=== PATIENT | female | born 1980 | race Caucasian/White ===

== ENCOUNTER 2017-09-08 20:55 | Emergency (ER) | payer SELFPAY ==
[2017-09-08] MEDS ORDERED: ASPIRIN 81 MG CHEWABLE TABLETS PO ONE (21:08)
[2017-09-08 21:09] VITALS: BP 106/67; PULSE 88; TEMP 98.2; BMI 24.5
--- NOTE | 2017-09-08 21:14 | PDOC ---
Rapid Medical Evaluation Chief Complaint: Chest Pain Time Seen by Provider: 09/08/17 21:06 Medical Evaluation: Allergies Allergy/AdvReac Type Severity Reaction Status Date / Time No Known Allergies Allergy Verified 05/16/16 03:15 c/o chest pain and dizziness x 1 day. chest pain worse with breathing. patient reports heaviness with neck and shoulder pain. denies no recent travel, denies prolonged sitting or OCP use. PE: Patient alert ox3. breath sounds clear s1s2 Plan; cbc cmp d-dimer chest xray EKG aspirin patient to the ER for further management of care. Discharge Disposition - Diagnosis Chest pain at rest - Referrals - Patient Instructions - Post Discharge Activity
[2017-09-08] MEDS ORDERED: ASPIRIN 81 MG CHEWABLE TABLETS ONE (21:36)
[2017-09-08 21:42] LABS: BASO % 0.8 % (0-2.0); EOS % 3.4 % (0-4.5); HEMATOCRIT 41.4 % (32.4-45.2); HEMOGLOBIN 14.2 GM/dL (10.7-15.3); LYMPH % 23.7 % (8-40); MCH 31.4 pg (25.7-33.7); MCHC 34.3 g/dl (32.0-36.0); MEAN CELL VOLUME 91.4 fl (80-96); MEAN PLT VOLUME 9.4 fl (7.5-11.1); NEUT % 65.1 % (42.8-82.8); PLATELET COUNT 194 K/MM3 (134-434); RBC 4.53 M/mm3 (3.60-5.2); RDW 13.4 % (11.6-15.6); WHITE BLOOD COUNT 5.2 K/mm3 (4.0-10.0)
[2017-09-08 22:00] LABS: INR 1.01 (0.82-1.09); PROTHROMBIN TIME (PATIENT) 11.4 SEC (9.7-13.0)
[2017-09-08 22:12] LABS: ANION GAP 6 (8-16); BILIRUBIN,TOTAL 0.4 mg/dL (0.2-1.0); BLOOD UREA NITROGEN 13 mg/dL (7-18); CALCIUM 8.3 mg/dL (8.5-10.1); CHLORIDE 106 mmol/L (98-107); CO2 28 mmol/L (21-32); CREATININE 0.6 mg/dL (0.55-1.02); GLUCOSE,RANDOM 92 mg/dL (74-106); SGPT/ALT 28 U/L (12-78); SODIUM 140 mmol/L (136-145); TOT PROT 7.4 g/dl (6.4-8.2)
[2017-09-08 22:15] LABS: ALK PHOS 175 U/L (45-117)
[2017-09-08 22:16] LABS: MAGNESIUM 2.2 mg/dL (1.8-2.4); POTASSIUM 3.5 mmol/L (3.5-5.1); SGOT/AST 21 U/L (15-37)
[2017-09-08] MEDS ORDERED: ALBUTEROL SO4 2.5/IPRATROPIUM 0.5 INH SOL 3 ML VIAL.NEB. NEB ONE (22:18)
--- NOTE | 2017-09-08 22:24 | PDOC ---
History of Present Illness - General Chief Complaint: Chest Pain Stated Complaint: FLU SYMPTOMS Time Seen by Provider: 09/08/17 21:06 History Source: Patient - History of Present Illness Initial Comments: 09/08/17 22:27 37 year old female chest pain x 1 with dizziness. patient reports heaviness to chest, neck and shoulders, . pain worse with breathing. denies OCP, recent travel prolonged sitting. denies NVD, abdominal pain. occasional smoker no pmhx Past History - Past Medical History Allergies/Adverse Reactions: Allergies Allergy/AdvReac Type Severity Reaction Status Date / Time No Known Allergies Allergy Verified 09/08/17 21:08 Home Medications: Ambulatory Orders Ondansetron [Zofran Odt -] 4 mg SL TID #8 od.tablet 05/16/16 Loratadine [Claritin] 10 mg PO DAILY #30 tablet 09/08/17 COPD: No - Surgical History Appendectomy: Yes Cholecystectomy: Yes - Suicide/Smoking/Psychosocial Hx Smoking History: Current some day smoker Number of Cigarettes Smoked Daily: 3 Information on smoking cessation initiated: Yes 'Breaking Loose' booklet given: 09/08/17 Hx Alcohol Use: No Drug/Substance Use Hx: No Review of Systems - Review of Systems Able to Perform ROS?: Yes Is the patient limited Tuvaluan proficient: No Constitutional: No: Symptoms Reported, See HPI, Chills, Diaphoresis, Fever, Loss of Appetite, Malaise, Night Sweats, Weakness, Weight Stable, Unintentional Wgt. Loss, Unexplained wgt Loss, Other HEENTM: No: Symptoms Reported, See HPI, Eye Pain, Blurred Vision, Tearing, Recent change in vision, Double Vision, Cataracts, Ear Pain, Ocular Prothesis, Ear Discharge, Nose Pain, Nose Congestion, Tinnitus, Nose Bleeding, Hearing Loss , Throat Pain, Throat Swelling, Mouth Pain, Dental Problems, Difficulty Swallowing, Mouth Swelling, Other Respiratory: No: Symptoms reported, See HPI, Cough, Orthopnea, Shortness of Breath, SOB with Exertion, SOB at Rest, Stridor, Wheezing, Productive cough, Hemoptysis, Other Cardiac (ROS): Yes: Chest Pain, Chest Tightness ABD/GI: No: Symptoms Reported, See HPI, Abdominal Distended, Abd. Pain w/ defecation, Blood Streaked Bowels, Constipated, Diarrhea, Difficulty Swallowing , Nausea, Poor Appetite, Poor Fluid Intake, Rectal Bleeding, Vomiting, Indigestion, Abdominal cramping, Tarry Stools, Other : No: Symptoms Reported, See HPI, Burning, Dysuria, Discharge, Frequency, Flank Pain, Hematuria, Incontinence, Pain, Urgency, Testicular Mass, Testicular Swelling, Lesions, Testicular Pain, Other *Physical Exam - Vital Signs Last Vital Signs Temp Pulse Resp BP Pulse Ox 98.2 F 88 18 106/67 99 09/08/17 21:06 09/08/17 21:06 09/08/17 21:06 09/08/17 21:06 09/08/17 21:06 - Physical Exam General Appearance: Yes: Appropriately Dressed Respiratory/Chest: positive: Lungs Clear, Normal Breath Sounds Cardiovascular: positive: Regular Rhythm, Regular Rate Gastrointestinal/Abdominal: positive: Normal Bowel Sounds, Soft Extremity: positive: Normal Capillary Refill, Normal Inspection, Normal Range of Motion Integumentary: positive: Normal Color, Warm Neurologic: positive: Fully Oriented, Alert, Normal Mood/Affect Heart Score/ECG Review - History History: Slightly suspicious - Electrocardiogram EKG: Normal - Age Age: </= 45 - Risk Factors Based on the list above the patient has:: No risk factors known - Troponin Troponin: </= normal limit - Score Heart Score - Total: 0 - ECG Intrepretation Rhythm: Regular Rhythm Comment:: 09/08/17 22:24 NSR ED Treatment Course - LABORATORY CBC & Chemistry Diagram: 09/08/17 21:31 09/08/17 21:31 - ADDITIONAL ORDERS Additional order review: Laboratory Results 09/08/17 09/08/17 09/08/17 22:20 21:31 21:31 PT with INR 11.40 INR 1.01 D-Dimer 256 Sodium 140 Potassium 3.5 Chloride 106 Carbon Dioxide 28 Anion Gap 6 L BUN 13 Creatinine 0.6 Creat Clearance w eGFR > 60 Random Glucose 92 Calcium 8.3 L Magnesium 2.2 Total Bilirubin 0.4 D AST 21 ALT 28 Alkaline Phosphatase 175 H Creatine Kinase 72 Troponin I < 0.02 Total Protein 7.4 Albumin 4.0 Serum , Qual Negative 09/08/17 21:31 RBC 4.53 MCV 91.4 MCHC 34.3 RDW 13.4 MPV 9.4 Neutrophils % 65.1 D Lymphocytes % 23.7 D Monocytes % 7.0 Eosinophils % 3.4 Basophils % 0.8 - RADIOLOGY Radiology Studies Ordered: Category Date Time Status CHEST PA & LAT [RAD] Stat Radiology 09/08/17 21:08 Taken - Medications Given in the ED: ED Medications Discontinued Medications Generic Name Dose Route Start Last Admin Trade Name Mora PRN Reason Stop Dose Admin Albuterol/Ipratropium 1 amp 09/08/17 22:18 09/08/17 23:09 Duoneb - NEB 09/08/17 22:19 1 amp ONCE ONE Administration Aspirin 162 mg 09/08/17 21:08 09/08/17 21:39 Asa - PO 09/08/17 21:09 162 mg ONCE ONE Administration Medical Decision Making - Medical Decision Making 09/08/17 22:32 A: pleuritic chest pain P: cbc cmp cardiac troponin *DC/Admit/Observation/Transfer Diagnosis at time of Disposition: Chest pain at rest - Discharge Dispostion Disposition: HOME - Prescriptions Prescriptions: Loratadine [Claritin] 10 mg PO DAILY #30 tablet - Referrals Referrals: Santiago Godinez MD [Staff Physician] - Call tomorrow - Patient Instructions Printed Discharge Instructions: DI for Atypical Chest Pain Additional Instructions: follow up with your doctor as soon as possible. return to the ER if symptoms worsen. - Post Discharge Activity Forms/Work/School Notes: Back to Work
[2017-09-09] MEDS ORDERED: IBUPROFEN 600 MG TABLET (FP) PO ONE (00:19)
--- NOTE | 2017-09-09 10:22 | EKG ---
Test Reason : Blood Pressure : / mmHG Vent. Rate : 082 BPM Atrial Rate : 082 BPM P-R Int : 136 ms QRS Dur : 082 ms QT Int : 386 ms P-R-T Axes : 072 055 058 degrees QTc Int : 450 ms NORMAL SINUS RHYTHM POSSIBLE LEFT ATRIAL ENLARGEMENT NO PREVIOUS ECGS AVAILABLE Confirmed by IFTIKHAR ROBERTSON MD ([id number]) on 09/09/2017 10:22:10 AM Referred By: Confirmed By:IFTIKHAR ROBERTSON MD
== END 2017-09-09 02:15 | disposition home or self-care (01) ==
LOC: JER 20:55
PROC: 3E0F7GC Introduction of Other Therapeutic Substance into Respiratory Tract, Via Natural or Artificial Opening (ICD-10-PCS; principal; 2017-09-08)
DX: R07.89 Other chest pain (principal)
CPT/HCPCS: 36415; 71046-TC-FY; 80053; 82550; 83735; 84484; 84703; 85025; 85379; 85610; 93005; 93010; 99282-25; J7620

== ENCOUNTER 2024-12-07 22:09 | Emergency (ER) | payer SELFPAY ==
[2024-12-07 22:15] VITALS: BP 129/85; PULSE 89; RESP 20; TEMP 98.1; BMI 25.4
[2024-12-07] MEDS ORDERED: TETRACAINE 0.5% OPHTH SOLN 2 ML BOTTLE ONE (22:39)
[2024-12-07] MEDS ORDERED: ACETAMINOPHEN INJECTION 100 ML ONE (23:20)
[2024-12-07] MEDS ORDERED: METOCLOPRAMIDE HCL INJECTION 10 MG/2 ML VIAL ONE (23:20)
[2024-12-07] MEDS: TETRACAINE 0.5% HCL 0.6ML DROPPER.BOTTLE OD ONE (23:44)
[2024-12-07] MEDS: ACETAMINOPHEN 1000 MG/100 ML BAG IVPB ONE (23:53)
[2024-12-07 23:54] LABS: ABSOLUTE IMMATURE GRANULOCYTES 0.01 x10^3/uL (0.0-0.031); BASOPHILS # 0.05 x10^3/uL (0.01-0.08); EOSINOPHIL % 2.8 % (0.7-5.8); EOSINOPHILS # 0.15 x10^3/uL (0.04-0.36); MCHC 33.7 g/dl (32.2-35.5); MEAN CELL VOLUME 89.4 fl (79.4-94.8); MEAN PLT VOLUME 10.8 fl (9.4-12.3); MONOCYTE # 0.37 x10^3/uL (0.24-0.86); MONOCYTE % 7.0 % (4.7-12.5); RDW 12.5 % (12.2-17.1)
[2024-12-07] MEDS: METOCLOPRAMIDE HCL INJECTION 10 MG/2 ML VIAL IVPB ONE (23:59)
[2024-12-07] MEDS: SODIUM CHLORIDE 0.9% 500 ML INFUS.BAG IV ONE (23:59)
[2024-12-08 00:04] LABS: INR 0.98 (0.83-1.09); PROTHROMBIN TIME (PATIENT) 10.8 SEC (9.7-13.0)
[2024-12-08 00:07] LABS: ACTIVATED PTT 27.5 SECONDS (25.2-36.5)
[2024-12-08 00:15] LABS: GLUCOSE,RANDOM 91.0 mg/dL (74-106); TOT PROT 7.6 g/dl (6.4-8.2)
[2024-12-08 00:16] LABS: CO2 29.0 mmol/L (21-32)
[2024-12-08 00:18] LABS: ALK PHOS 161.0 U/L (40-150)
[2024-12-08 00:20] LABS: SGOT/AST 31.0 U/L (5-34); SGPT/ALT 30.0 U/L (0-55)
[2024-12-08 00:21] LABS: CREATININE 0.81 mg/dL (0.55-1.3)
[2024-12-08 00:42] LABS: HCV DIAGNOSTIC IN-HOUSE W/RFLX NON-REACTIVE (NONREACTIVE)
[2024-12-08 00:43] LABS: HIV INTERPRETATION NEGATIVE (NEGATIVE)
== END 2024-12-08 01:06 | disposition home or self-care (01) ==
LOC: JERFT 22:09 → JER 22:09
PROC: 3E033NZ Introduction of Analgesics, Hypnotics, Sedatives into Peripheral Vein, Percutaneous Approach (ICD-10-PCS; principal; 2024-12-07)
PROC: 3E033GC Introduction of Other Therapeutic Substance into Peripheral Vein, Percutaneous Approach (ICD-10-PCS; 2024-12-07)
DX: H11.32 Conjunctival hemorrhage, left eye (principal); R51.9 Headache, unspecified; R07.9 Chest pain, unspecified; K92.1 Melena
CPT/HCPCS: 36415; 70450-TC; 71046-TC-FY; 80053; 82272; 84484; 84703; 85025; 85610; 85730; 86803; 86850; 86900; 86901; 87389; 93005; 93010; 99285-25